=== PATIENT | male | born 1995 | race Caucasian/White ===

== ENCOUNTER 2020-07-12 03:42 | Emergency (ER) | payer OTHER ==
[~2020-07-12] VITALS: Ht 175.3 cm; Wt 60.0 kg
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
[2020-07-12 05:00] VITALS: BP 122/64
== END 2020-07-12 05:36 | disposition home or self-care (01) ==
LOC: EEVIPCON 03:42 → ER 03:42
DX: S00.93XA Contusion of unspecified part of head, initial encounter (principal); R07.81 Pleurodynia; V49.88XA Car occupant (driver) (passenger) injured in other specified transport accidents, initial encounter; Y93.89 Activity, other specified; Y92.488 Other paved roadways as the place of occurrence of the external cause; Y99.8 Other external cause status
CPT/HCPCS: 36415; 70450; 71045; 99285-25